=== PATIENT | female | born 1990 | race Caucasian/White ===

== ENCOUNTER 2018-06-02 06:28 | Emergency (ER) | payer SELFPAY ==
[2018-06-02 06:29] VITALS: BP 158/109; PULSE 101; RESP 18; TEMP 35.6; O2SAT 98; BMI 39.1
--- NOTE | 2018-06-02 06:50 | ED.VIS.GEN ---
History of Present Illness Chief Complaint: General Illness Informant: Patient Onset: Weeks - 1 Context: Gradual Onset Timing: Continuous Quality: prod cough, wheezing Location: chest Current Severity: Moderate Maximum Severity: Moderate Worsened by: exertion, coughing Relieved by: nothing Associated Symptoms: cough productive of yellow-green sputum, no blood; EUGENE/wheezing. CP/tight. Narrative: Patient states she has been ill for about a week, she has developed the same illness that her boss at work had prior to her. She has no asthma but has been wheezing quite a bit. Worse when she exerts herself to a significant degree but not lately. Fits of bronchospasm make her feel dyspneic at times, and occasionally give her posttussive emesis. Also some diarrhea but no other GI issues. No fevers. Hearing is muffled but no ear pain or discharge. No sore throat. No neck stiffness or confusion. Past Medical History - Allergies and Home Meds Allergies/Adverse Reactions: Allergies No Known Allergies Allergy (Verified 06/02/18 06:28) Primary Care Physician: Paula Spears MD [Primary Care Provider] - Smoking Status: Current some day smoker Review of Systems All systems negative except as indicated General: Reports: Chills, Malaise. Denies: Fever Eyes: Denies: Visual changes - bilaterally, Diplopia ENT: Reports: Rhinorrhea. Denies: Bilateral ear pain, Sore throat Cardiovascular: Reports: Chest pain. Denies: Palpitations, Heart racing Respiratory: Reports: Dyspnea, Cough, Sputum, Dyspnea on exertion Gastrointestinal: Reports: Vomiting, Diarrhea. Denies: Abdominal pain, Nausea, Melena, Hematochezia Musculoskeletal: Denies: Myalgias, Arthralgias, Neck pain, Back pain, Swelling, Extremity Pain Skin: Denies: Rash Neurological: Denies: Headache, Weakness, Parasthesia Physical Exam Vital Signs/Narrative: Vital Signs Temp Pulse Resp BP Pulse Ox 06/02/18 06:29 96.1 F L 101 H 18 158/109 H 98 Inital Vital Signs reviewed: Yes General: Well nourished, Well developed Head: Normocephalic, Atraumatic Eyes: Perrl, EOMI ENT: Moist mucous membranes, No rhinorrhea, TM's clear, - - Posterior oropharynx clear. Negative for: Nasal congestion, Sinus tenderness Neck: Supple, Nontender, No lymphadenopathy Cardiovascular: Regular rate, Regular rhythm, No murmurs Respiratory: No distress, Chest nontender, Wheezing Abdomen: Soft, Nontender, Nondistended, Normal bowel sounds Back: Nontender, Normal Inspection Extremities: Nontender, No edema Skin: Normal color, No rash Neurological: Alert, Oriented x3, Cranial nerves II-XII grossly intact, Normal Strength, Normal Sensation Psychological: Normal affect Diagnostic/Tx/Re-eval Chest X-Ray - ED: 2 View, Read by Radiologist, No Acute Disease Clinical Impression(s) from Imaging Studies Chest X-Ray 06/02/18 06:49 IMPRESSION: Normal x-ray examination of the chest. Electronically Signed: Gab Chacon MD at 7:27 EDT , Service support , - Medical Decision Making Chest x-ray is normal. This is most likely viral in etiology given the history. She is improved after some aerosols. Will prescribe her an albuterol MDI and Robitussin AC for cough. Recommend close outpatient follow-up if she goes another week without any improvement. Antibiotics not indicated at this time, especially in context of the acute diarrhea. ED Disposition - Plan for ED Patient: Disposition: Home or Assisted Living Chief Complaint: General Illness Diagnosis: Acute bronchitis with bronchospasm Instructions: Acute Bronchitis, ED Wheezing Prescriptions: Albuterol Inhaler [Ventolin Hfa] 1 - 2 puff INHALATION Q4H PRN PRN #1 inhaler PRN Reason: Wheezing Guaifenesin/Codeine [Robitussin AC] 5 - 10 ml PO Q6H PRN PRN #4 oz PRN Reason: Cough Referrals: Paula Spears MD [Primary Care Provider] - 1 Week if not improving
[2018-06-02] MEDS: Ipratropium/Albuterol Sulfate 3 ML AMPUL.NEB INHALATION (06:58)
[2018-06-02] MEDS: Albuterol 2.5 MG/3 ML VIAL.NEB. INHALATION (06:58)
[2018-06-02 06:59] VITALS: PULSE 110; RESP 20
[2018-06-02 08:00] VITALS: BP 121/69; PULSE 63; RESP 15; O2SAT 98
== END 2018-06-02 08:01 | disposition home or self-care (01) ==
PROVIDERS: Emergency Provider Emergency Medicine
DX: J20.9 Acute bronchitis, unspecified (principal); R19.7 Diarrhea, unspecified; F17.200 Nicotine dependence, unspecified, uncomplicated
CPT/HCPCS: 71046; 94640; 99282

== ENCOUNTER → 2023-09-16 | Outpatient (CLI) | payer MEDICAID, SELFPAY ==
[2023-09-16 11:28] LABS: hCG Titer Quant., Serum < 1 mIU/mL (1-3)
== END | disposition home or self-care (01) ==
LOC: PAVLAB 10:40
PROVIDERS: PCP Nurse Practitioner Family; Referring Provider Advanced Practice Midwife; Visit Provider Advanced Practice Midwife
DX: N91.2 Amenorrhea, unspecified (principal)
CPT/HCPCS: 36415; 84702